=== PATIENT | male | born 2000 | race Caucasian/White ===

== ENCOUNTER 2024-04-05 10:05 | Emergency (ER) | payer OTHER ==
[2024-04-05 10:32] VITALS: BP 146/85; O2SAT 100
--- NOTE | 2024-04-05 11:48 | ED Physician Documentation ---
History of Present Illness - Stated complaint Stated Complaint: UPPER LIP LAC - Chief complaint Chief Complaint: Laceration - History obtained from History obtained from: Patient - History of Present Illness Timing: Today Pain level max: 2 Pain level now: 2 - Additonal information Additional information: 23-year-old male was at work today when a pallet james hit him in the face causing a laceration to the inner aspect of the left upper lip. No dental pain or tooth injury. Did not get knocked out. No nausea or vomiting. No altered mental status. No neck or back pain. Unknown last tetanus shot. Review of Systems GI: denies: Vomiting Neurologic: denies: Seizure, Confused PD PAST MEDICAL HISTORY - Past Medical History Past Medical History: No Cardiovascular: None Respiratory: None Neuro: None Endocrine/Autoimmune: None GI: None : None HEENT: None Psych: None Musculoskeletal: None Derm: None - Past Surgical History Past Surgical History: No - Present Medications Home Medications: Ambulatory Orders Medication Instructions Recorded Confirmed No Known Home Medications 04/05/24 04/05/24 - Allergies Allergies/Adverse Reactions: Allergies Allergy/AdvReac Type Severity Reaction Status Date / Time No Known Drug Allergies Allergy Verified 04/05/24 10:25 - Social History Does the pt smoke?: No Smoking Status: Never smoker Does the pt drink ETOH?: Yes Does the pt have substance abuse?: Yes Substance Use and Type: Marijuana - POLST Patient has POLST: No PD ED PE NORMAL - Vitals Vital signs reviewed: Yes - General General: Alert and oriented X 3, No acute distress - HEENT HEENT: Atraumatic (No facial bony tenderness. No scalp hematomas. No palpable skull fractures.), PERRL, EOMI, Moist mucous membranes, Dentition benign, Other (Small 0.5 cm laceration to the inner aspect of the upper lip. Not gaping. Not through and through.) - Neck Neck: Supple, no meningeal sign, No bony TTP - Cardiac Cardiac: RRR - Respiratory Respiratory: No respiratory distress, Clear bilaterally - Derm Derm: Warm and dry - Neuro Neuro: Alert and oriented X 3, lever miller 2-12 intact, No motor deficit, No sensory deficit, Normal speech Eye Opening: Spontaneous Motor: Obeys Commands Verbal: Oriented GCS Score: 15 - Psych Psych: Normal mood, Normal affect Results - Vitals Vitals: Vital Signs - 24 hr 04/05/24 10:25 Temperature 36.6 C Heart Rate 90 Respiratory 16 Rate Blood Pressure 146/85 H O2 Saturation 100 Oxygen O2 Source Room air PD Medical Decision Making - ED course Complexity details: considered differential, d/w patient ED course: Patient with a small laceration to the inner surface of the upper lip. Does not require any intervention or repair. Tdap given. [place] [id number]. GCS 15. No evidence of skull fracture or intracranial hemorrhage. No evidence of facial bone fracture. No dental injury. Patient counseled regarding signs and symptoms for which I believe and urgent re-evaluation would be necessary. Patient with good understanding of and agreement to plan and is comfortable going home at this time This document was made in part using voice recognition software. While efforts are made to proofread this document, sound alike and grammatical errors may occur. Departure - Departure Disposition: 01 Home, Self Care Clinical Impression: Lip laceration Qualifiers: Encounter type: initial encounter Qualified Code(s): S01.511A - Laceration without foreign body of lip, initial encounter Instructions: ED Laceration Mouth Follow-Up: your,doctor as needed [Other] Comments: The laceration to your upper lip does not require any intervention today. It does not require any suturing. This will heal on its own. You can use Motrin or Tylenol as needed for any pain, ice for any swelling. Be careful not to get any food stuck in the laceration. Please follow-up with your doctor as needed for any further care. Forms: PCP List
[2024-04-05] MEDS: TETANUS/DIPHTHERIA/PERTUSSIS 0.5 ML SYRINGE IM ONE (12:06)
== END 2024-04-05 12:09 | disposition home or self-care (01) ==
LOC: ED 10:05
DX: S01.511A Laceration without foreign body of lip, initial encounter (principal); W31.89XA Contact with other specified machinery, initial encounter; Y99.0 Civilian activity done for income or pay; Z23 Encounter for immunization
CPT/HCPCS: 1040M; 90471; 90715; 99283